=== PATIENT | female | born 1970 | race Caucasian/White ===

== ENCOUNTER 2020-08-11 08:54 | Outpatient (CLI) | payer OTHER ==
[2020-08-11 09:25] LABS: BASOPHILS % (AUTO) 0.6 % (0.0-2.0); EOSINOPHILS # (AUTO) 0.2 K/uL (0.0-0.4); EOSINOPHILS % (AUTO) 2.4 % (0.0-4.0); HEMATOCRIT 42.2 % (36-48); HEMOGLOBIN 14.2 g/dL (12.0-16.0); LYMPHOCYTES # (AUTO) 1.5 K/uL (1.0-5.5); LYMPHOCYTES % (AUTO) 20.1 % (20.5-51.5); MEAN CORPUSCULAR HEMOGLOBIN 33 pg (27-31); MEAN CORPUSCULAR HGB CONC 34 % (32-36); MEAN CORPUSCULAR VOLUME 96 fL (79.0-98.0); MONOCYTES # (AUTO) 0.4 K/uL (0.0-1.0); MONOCYTES % (AUTO) 4.6 % (1.7-9.3); NEUTROPHILS # (AUTO) 5.6 K/uL (1.8-7.7); NEUTROPHILS % (AUTO) 72.3 % (40.0-70.0); PLATELET COUNT (AUTO) 212 K/uL (130-430); RED BLOOD CELL COUNT(AUTO) 4.38 MIL/uL (4.2-6.2); RED CELL DISTRIBUTION WIDTH 14.1 % (9.0-15.0); WHITE BLOOD COUNT (AUTO) 7.7 K/uL (4.8-10.8)
[2020-08-11 09:47] LABS: ALBUMIN 3.6 g/dL (3.4-4.8); CALCIUM 8.5 mg/dL (8.4-11.0); CREATININE 0.55 mg/dL (0.55-1.30); POTASSIUM 4.3 mmol/L (3.5-5.1); THYROID STIMULATING HORMONE 5.58 uIu/mL (0.36-3.74); TOTAL BILIRUBIN 0.3 mg/dL (0.0-1.0)
[2020-08-11 09:52] LABS: BILIRUBIN,URINE NEGATIVE (NEGATIVE); BLOOD, URINE NEGATIVE (NEGATIVE); CLARITY/URINE CLOUDY (CLEAR); COLOR,URINE YELLOW (YELLOW); GLUCOSE,URINE NEGATIVE (NEGATIVE); KETONES,URINE NEGATIVE (NEGATIVE); PROTEIN URINE NEGATIVE (NEGATIVE)
[2020-08-11 09:53] LABS: BACTERIA,URINE MODERATE /HPF (None Seen); LEUKOCYTE ESTERASE ,URINE 2+ (NEGATIVE); NITRITE, URINE POSITIVE (NEGATIVE); RBC,URINE 0-3 /HPF (0-3); UROBILINOGEN,URINE 0.2 (0.2-1.0); WBC,URINE 50-80 /HPF (0-3)
[2020-08-12 08:07] LABS: FOLLICLE STIMULATION HORMONE 20.3 mIU/mL (.); LUETENIZING HORMONE 23.7 mIU/mL (.); PROGESTERONE 0.2 ng/mL (.); PROLACTIN 18.6 ng/mL (4.8-23.3)
== END 2020-08-11 20:27 | disposition home or self-care (01) ==
LOC: SLB 08:54
DX: Z12.11 Encounter for screening for malignant neoplasm of colon (principal); E55.9 Vitamin D deficiency, unspecified; N39.0 Urinary tract infection, site not specified; N92.6 Irregular menstruation, unspecified; I10 Essential (primary) hypertension; R53.83 Other fatigue; Z00.00 Encounter for general adult medical examination without abnormal findings
CPT/HCPCS: 36415; 80053; 80061; 81000-TC; 82272; 82306; 82670; 83001; 83002; 84144; 84146; 84443-TC; 85025; 87086

== ENCOUNTER 2020-08-31 09:11 | Outpatient (CLI) | payer OTHER | END 2020-08-31 20:46 | disposition home or self-care (01) | LOC: SUS 09:11 | DX: R94.5 Abnormal results of liver function studies (principal); R53.83 Other fatigue | CPT/HCPCS: 76700-TC ==

== ENCOUNTER 2020-09-08 08:05 | Day surgery (SDC) | payer OTHER, SELFPAY ==
[~2020-09-08] VITALS: Ht 162.6 cm; Wt 72.6 kg
[2020-09-08 09:07] LABS: HCG,QUAL RESULT NEGATIVE (NEGATIVE)
[2020-09-08] MEDS: fentaNYL CITRATE/PF 100 MCG/2 ML AMP ONE ×3 (10:10→10:14)
[2020-09-08] MEDS: MIDAZOLAM HCL 5 MG/5 ML VIAL ONE ×4 (10:10→10:16)
[2020-09-08 10:35] VITALS: BP_SYST 127
[2020-09-08] MEDS ORDERED: SIMETHICONE 40 MG/0.6 ML ML ONE (14:13)
== END 2020-09-08 11:20 | disposition home or self-care (01) ==
LOC: SDS 08:05 → SMU 08:06 → SDS 11:20
PROVIDERS: ATTEND Internal Medicine
DX: K64.8 Other hemorrhoids (principal); K57.30 Diverticulosis of large intestine without perforation or abscess without bleeding; I10 Essential (primary) hypertension; Z20.828 Contact with and (suspected) exposure to other viral communicable diseases; Z79.899 Other long term (current) drug therapy
CPT/HCPCS: 45378; 84703; 99152; G0378; J2250; J3010; J7030; U0003

== ENCOUNTER 2021-10-22 08:35 | Outpatient (CLI) | payer OTHER, SELFPAY ==
[2021-10-22 10:54] LABS: BASOPHILS % (AUTO) 0.4 % (0.0-2.0); EOSINOPHILS # (AUTO) 0.2 K/uL (0.0-0.4); HEMATOCRIT 44.3 % (36-48); HEMOGLOBIN 14.6 g/dL (12.0-16.0); LYMPHOCYTES # (AUTO) 1.6 K/uL (1.0-5.5); LYMPHOCYTES % (AUTO) 21.3 % (20.5-51.5); MEAN CORPUSCULAR HEMOGLOBIN 32 pg (27-31); MEAN CORPUSCULAR HGB CONC 33 % (32-36); MEAN CORPUSCULAR VOLUME 96 fL (79.0-98.0); MONOCYTES # (AUTO) 0.4 K/uL (0.0-1.0); MONOCYTES % (AUTO) 5.8 % (1.7-9.3); NEUTROPHILS # (AUTO) 5.3 K/uL (1.8-7.7); NEUTROPHILS % (AUTO) 69.5 % (40.0-70.0); PLATELET COUNT (AUTO) 168 K/uL (130-430); RED BLOOD CELL COUNT(AUTO) 4.61 MIL/uL (4.2-6.2); RED CELL DISTRIBUTION WIDTH 14.2 % (9.0-15.0); WHITE BLOOD COUNT (AUTO) 7.7 K/uL (4.8-10.8)
[2021-10-22 11:12] LABS: CREATININE 0.44 mg/dL (0.55-1.30); POTASSIUM 4.4 mmol/L (3.5-5.1)
[2021-10-22 11:27] LABS: ALBUMIN 3.7 g/dL (3.4-4.8); THYROID STIMULATING HORMONE 1.83 uIu/mL (0.36-3.74); TOTAL BILIRUBIN 0.4 mg/dL (0.0-1.0)
== END 2021-10-22 20:12 | disposition home or self-care (01) ==
LOC: SMA 08:35
PROVIDERS: ATTEND Internal Medicine
DX: Z12.31 Encounter for screening mammogram for malignant neoplasm of breast (principal); Z00.00 Encounter for general adult medical examination without abnormal findings; E78.5 Hyperlipidemia, unspecified; R53.83 Other fatigue; E55.9 Vitamin D deficiency, unspecified
CPT/HCPCS: 36415; 77067; 80053; 80061; 82306; 84439; 84443; 85025

== ENCOUNTER 2021-11-23 08:46 | Outpatient (CLI) | payer OTHER ==
[2021-11-23 10:13] LABS: ALBUMIN 3.4 g/dL (3.4-4.8); CALCIUM 9.2 mg/dL (8.4-11.0); CREATININE 0.48 mg/dL (0.55-1.30); POTASSIUM 4.2 mmol/L (3.5-5.1); TOTAL BILIRUBIN 0.5 mg/dL (0.0-1.0)
[2021-11-24 08:06] LABS: HEPATITIS A AB, IgM Negative (Negative); HEPATITIS B CORE AB, IgM Negative (Negative); HEPATITIS B SURFACE AG Negative (Negative)
== END 2021-11-23 19:34 | disposition home or self-care (01) ==
LOC: SUS 08:46
PROVIDERS: ATTEND Internal Medicine
DX: R74.01 Elevation of levels of liver transaminase levels (principal)
CPT/HCPCS: 36415; 76700-TC; 80053; 80074